=== PATIENT | female | born 2000 | race Caucasian/White ===

== ENCOUNTER 2024-08-15 15:53 | Emergency (ER) | payer BC, SELFPAY ==
[2024-08-15 16:02] VITALS: BP 137/101
[2024-08-15 16:21] LABS: % Basophils 0.8 % (0-2); % Eosinophils 0.5 % (0-6); % Immature Granulocytes 0.3 % (0-0.5); % Lymphocytes 32.5 % (20.5-51.1); % Monocytes 6.1 % (1.7-9.3); % Neutrophils 59.8 % (42.2-75.2); Absolute Basophils 0.1 10^3/uL (0-0.2); Absolute Monocytes 0.4 10^3/uL (0.1-0.6); Absolute Neutrophils 3.7 10^3/uL (1.4-6.5); Hematocrit 44.3 % (37.0-47.0); Hemoglobin 15.2 g/dL (12.0-16.0); Mean Corp Hgb Conc. 34.3 g/dL (33.0-37.0); Mean Corpuscular Hgb 30.3 pg (27.0-31.0); Mean Corpuscular Volume 88.4 fL (81.0-99.0); Mean Platelet Volume 9.8 fL (7.4-10.4); Nucleated Red Blood Cells % 0 %; Platelet Count 218 10^3/uL (130-400); Red Blood Cell Count 5.01 10^6/uL (4.20-5.40); Red Cell Dist. Width 12.6 % (11.5-14.5); White Blood Cell Count 6.1 10^3/uL (4.8-10.8)
[2024-08-15 16:31] LABS: HCG, Serum Qualitative Screen Negative
[2024-08-15 16:45] LABS: Troponin I < 0.012 ng/ml
[2024-08-15 16:48] LABS: ALT (SGPT) 18 U/L (0-35); AST (SGOT) 24 U/L (14-36); Albumin 4.8 g/dl (3.5-5.0); Alkaline Phosphatase 54 U/L (38-126); Blood Urea Nitrogen 20 mg/dl (7-17); Carbon Dioxide 23 mmol/L (22-30); Chloride 102 mmol/L (98-107); Glucose 94 mg/dl (70-99); Potassium 4.2 mmol/L (3.5-5.1); Sodium 137 mmol/L (135-145); Total Bilirubin 0.6 mg/dl (0.2-1.3); Total Protein 7.6 g/dl (6.3-8.2); eGFR > 60.00
--- NOTE | 2024-08-15 19:00 | ED.GENMED ---
History of Present Illness
<Raven Street PA-C - Last Filed: 08/15/24 21:16>
General
Chief Complaint: Chest Pain
Source: patient and family (mom at bedside)
Exam Limitations: none
Time Seen by Provider: 08/15/24 18:14
Nursing documentation reviewed up to this point in time: agreed with
History of Present Illness
History of Present Illness:
Patient is a 24-year-old female presenting for evaluation of chest pain. Patient states that around 10 AM she was sitting at her desk when she had a sudden onset pressure in her chest associated with palpitations. She also noticed brief episode of
sharp pain to her back earlier. Patient states chest pressure and palpitations have remained steady throughout the day. No true pleuritic component to pain. She does note some worsening while walking around. Patient states that her heart rate
was in the low 100s while at rest earlier. Patient had very mild associated shortness of breath. She also had transient paleness of her left hand. No lower leg swelling or pain. No fevers or chills.
Patient has been struggling with a dry cough over the past week as she is recently getting over a suspected viral illness a few weeks ago.
Of note�patient has been recently following with a form tamping machine operator for palpitations. She had a normal EKG and a Holter monitor that she just completed yesterday although has not received results. She did have a recent echo which showed only mild
mitral regurgitation
Review of Systems
<Raven Street PA-C - Last Filed: 08/15/24 21:16>
Review of Systems
Allergies reviewed?: Yes
All Other Systems: ROS reviewed and negative except as documented in HPI and ROS
Phy Exam
<Raven Street PA-C - Last Filed: 08/15/24 21:16>
Physical Exam
Physical Exam:
Vitals: Hypertensive, otherwise vital signs stable. Afebrile
General: Patient is well appearing, no acute distress. Nontoxic appearing
Skin: Warm and dry, no rashes or lesions
Head: Normocephalic, atraumatic
Eyes: Sclera nonicteric. EOMs intact. No nystagmus.
Throat: Protecting airway
Neck: Normal ROM, no cervical spine tenderness, no meningismus
Cardiac: Regular rate and rhythm, no murmurs. No reproducible chest wall tenderness palpable and equal distal pulses.
Pulm: O2 saturation 99 on room air normal respiratory effort, no wheezes, rales, rhonchi heard on exam.
Abdomen: No abdominal tenderness.
Extremities: No evidence of cyanosis or edema
Neuro: AAOx3. Grossly intact.
Psychiatric: Normal affect.
Scores
<Raven Street PA-C - Last Filed: 08/15/24 21:16>
Heart Score for Chest Pain Patients
STEMI patient?: No
History: Slightly or Non-Suspicious
ECG: Normal
Age: </= 45 years
Risk Factors: No Risk Factors
Troponin: </= Normal Limit
Heart Score for Chest Pain Patients: 0
Heart Score Risk: 2.5% MACE over next 6 weeks
Course
<Raven Street PA-C - Last Filed: 08/15/24 21:16>
Orders/Labs/Results
Orders:
Orders
08/15/24 15:54
Electrocardiogram (*1) Urgent
Reason for Study: Chest Pain
EKG- Treatment ONCE
08/15/24 16:07
Test Result ONCE
08/15/24 16:12
Complete Blood Count/With Diff Urgent
Comprehensive Metabolic Panel Urgent
HCG, Serum Qualitative Screen Urgent
Comment: Notify provider if positive test present
Magnesium Urgent
Comment: ADDON
TSH Reflex To Free T4 Urgent
Comment: ADD ON
Troponin I Urgent
08/15/24 18:35
Ketorolac [Toradol] 15 mg IV NOW STA
08/15/24 18:36
Add On- LAB Urgent
Tests Added?: TSH w/ reflex to T4
08/15/24 19:07
D-Dimer Urgent
08/15/24 19:28
Add On- LAB Urgent
Tests Added?: magnesium
CR Chest - 2 Views Urgent
Comment:
Reason For Exam: sob
Abnormal Lab Results
08/15/24
16:12
BUN 20 H mg/dl
(17)
08/15/24 16:12
08/15/24 16:12
Vital Signs
Initial and Last Documented VS:
Initial Vital Signs
Temp Pulse Resp BP Pulse Ox
98.1 F 98 20 137/101 99
08/15/24 16:02 08/15/24 16:02 08/15/24 16:02 08/15/24 16:02 08/15/24 16:02
Last Documented Vital Signs
Temp Pulse Resp BP Pulse Ox
98.2 F 89 20 119/90 97
08/15/24 19:31 08/15/24 19:31 08/15/24 19:31 08/15/24 19:31 08/15/24 19:31
<Reji Foley MD - Last Filed: 08/15/24 19:39>
Orders/Labs/Results
Orders:
Orders
08/15/24 15:54
Electrocardiogram (*1) Urgent
Reason for Study: Chest Pain
EKG- Treatment ONCE
08/15/24 16:07
Test Result ONCE
08/15/24 16:12
Complete Blood Count/With Diff Urgent
Comprehensive Metabolic Panel Urgent
HCG, Serum Qualitative Screen Urgent
Comment: Notify provider if positive test present
Magnesium Urgent
Comment: ADDON
TSH Reflex To Free T4 Urgent
Comment: ADD ON
Troponin I Urgent
08/15/24 18:35
Ketorolac [Toradol] 15 mg IV NOW STA
08/15/24 18:36
Add On- LAB Urgent
Tests Added?: TSH w/ reflex to T4
08/15/24 19:07
D-Dimer Urgent
08/15/24 19:28
Add On- LAB Urgent
Tests Added?: magnesium
CR Chest - 2 Views Urgent
Comment:
Reason For Exam: sob
Abnormal Lab Results
08/15/24
16:12
BUN 20 H mg/dl
(7-17)
08/15/24 16:12
08/15/24 16:12
Vital Signs
Initial and Last Documented VS:
Initial Vital Signs
Temp Pulse Resp BP Pulse Ox
98.1 F 98 20 137/101 99
08/15/24 16:02 08/15/24 16:02 08/15/24 16:02 08/15/24 16:02 08/15/24 16:02
Last Documented Vital Signs
Temp Pulse Resp BP Pulse Ox
98.2 F 89 20 119/90 97
08/15/24 19:31 08/15/24 19:31 08/15/24 19:31 08/15/24 19:31 08/15/24 19:31
<Raven Street PA-C - Last Filed: 08/15/24 21:16>
MDM/Problems Addressed
Differential Diagnosis Includes:
Not limited to: Costochondritis, pleurisy, pericarditis, myocarditis, PE, cardiac arrhythmia, etc.
MDM/Problems Addressed:
24-year-old healthy female presenting with chest pain and palpitations. Patient initially hypertensive although improved by my assessment. Physical exam reassuring as above. Basic labs initiated in triage without any clinically significant
abnormalities. Troponin was undetectable and given it has been greater than 6 hours since onset of symptoms�feel this is sufficient to rule out acute UT. EKG shows normal sinus rhythm without any acute ischemic changes. Differential broad
although given recent viral illness possibly costochondritis versus pleurisy. Given OCP and associated back discomfort will screen with D-dimer to rule out PE. Will add on TSH. Will give IV Toradol. Patient does have form tamping machine operator and had recent
echocardiogram and Holter monitor.
Update: Fortunately D-dimer negative. Very low suspicion for PE. TSH normal. Chest x-ray obtained without any acute abnormalities. No evidence of pneumonia. Upon reassessment�patient did have some improvement in pain following Toradol. Workup
in emergency department unremarkable. Symptoms possibly related to costochondritis or pleurisy. No evidence of acute cardiac emergency. Remains very stable and well-appearing. Feel she is stable for discharge home with cardiology follow-up
outpatient. Return precautions discussed. Patient and patient's mom comfortable with plan. Patient seen with attending physician
Chronic conditions affecting care:
N/A
Acute Exacerbation and/or Progression of Chronic Illness:
N/A
<Raven Street PA-C - Last Filed: 08/15/24 21:16>
*Radiology
Radiology exam reviewed: preliminary read by ED provider (Chest x-ray reviewed by sd-no acute abnormalities or pneumonia)
*Pulse Oximetry
Patient hypoxic: no
*EKG
Interpreted by ED Provider?: Yes
EKG Intrepretation Date: 08/15/24
Interpretation: abnormal
Heart Rate: 92
Rate: normal
Rhythm: sinus
[place]: right axis deviation
Interval: normal interval
QRS Pattern: normal QRS
Ischemia: no ischemia
*Critical Care Note
Total Time (30-74mins, 75-104mins- exclusive of procedures): Not Applicable
ED Attending Note
<Raven Street PA-C - Last Filed: 08/15/24 21:16>
-
Portions of this chart may have been created with voice recognition software.� Occasional wrong word or��sound alike� substitutions may have occurred due to the inherent limitations of voice recognition software.
<Reji Foley MD - Last Filed: 08/15/24 19:39>
ED Attending Note
Patient seen and examined by attending physician: Yes
I performed the substantive portion of visit, reviewed & personally made and approve the management plan that is documented in note by myself or CARMEN.: Yes
ED Attending Note:
I have seen and evaluated the patient with a [id number] encounter. I have spoken to the [PA] and involved in the medical history, the physical exam, medical decision making.
Evaluation and management service: agree unless noted differently below.
Results interpretation: agree unless noted differently below.
24-year-old female presenting to the emergency department with chest pain. Patient states that she sees a form tamping machine operator to check for palpitations as well as chest pain. She was diagnosed with costochondritis. She also had an echo and Holter
monitor completed. The echo did show mild mitral regurgitation. She has not received the results of the Holter monitor. She states that today around 9:10 AM she was sitting when she has central chest pain that radiated to her back. She did have
associated shortness of breath. A few hours later her left hand transiently went pale. No weakness. No numbness tingling. She states that the pain is intermittent. It is not exertional. Is not positional. No family history of cardiac disease
or sudden cardiac .
GENERAL: in no acute distress
HEENT: normocephalic, extraocular movements intact, moist oral mucosa
NECK: normal inspection
RESPIRATORY: no respiratory distress, clear to auscultation bilaterally
CARDIOVASCULAR: regular rate and rhythm, 2+ radial pulses bilateral
EXTREMITIES: non-tender, no edema/swelling
NEUROLOGIC: awake and alert, moves all extremities, equal strength in upper extremities
SKIN: warm
24-year-old female presents to the emergency department with chest pain and palpitations. Vitals are unremarkable and exam is reassuring. Will check blood work including dimer EKG and obtain chest x-ray. EKG per my interpretation normal sinus
rhythm. Anticipate discharge
Discharge Plan
Departure
Patient Disposition: Home (Routine Discharge)
Date of Disposition: 08/15/24
Time of Disposition: 20:27
Patient with high blood pressure during this ER visit?: No
Condition: Good
Covid-19: Not Applicable
Discharge Problem:
Chest pain, Heart palpitations
Instructions: Palpitations ED, Chest pain
Prescriptions:
No Action
No Meds [No Current Medications]
0
Referrals:
SOLEDAD LUNA, [Family Provider] -
Activity Restrictions/Additional Instructions:
Return to the emergency department any chest pain, shortness of breath/difficulty breathing, severe back pain, persistent lightheadedness/dizziness, worsening in current symptoms, or any other concerns
-Your lab work and chest x-ray showed no acute abnormalities.
-As discussed�it is important to stay well-hydrated. You can take Motrin/Tylenol as needed for any discomfort.
-Follow-up with your form tamping machine operator for further evaluation/management
Monitor your symptoms closely return to the emergency department with any acute worsening/new symptoms or any other concern
Interventions
Interventions:
*Risk Screen - Suicide Last Done: 08/15/24 16:02
*General Assessment Last Done: 08/15/24 16:02
*Neglect/Abuse Screening Last Done: 08/15/24 16:02
*ED COVID-19 Vaccine History Last Done: 08/15/24 20:53
*Nursing Disposition Last Done: 08/15/24 20:53
ED- Cardiac Assessment Last Done: 08/15/24 20:53
Discharge Date and Time
Discharge Date/Time: 08/15/24 20:54
Print Language: [email or web address]
[2024-08-15] MEDS: TORADOL 15 MG IV (19:05)
[2024-08-15 19:28] LABS: D-Dimer 0.38 ug/mlFEU (0.00-0.50)
[2024-08-15 19:31] VITALS: BP 119/90
[2024-08-15 19:41] LABS: TSH Reflex To Free T4 1.29 uIU/ml (0.47-4.68)
== END 2024-08-15 20:54 | disposition home or self-care (01) ==
LOC: EMR 15:53
PROVIDERS: Emergency Medicine; Physician Assistant; EMERGENCY PHYSICIAN Student in an Organized Health Care Education/Training Program; FAMILY PHYSICIAN Student in an Organized Health Care Education/Training Program
DX: R07.89 Other chest pain (principal); R00.2 Palpitations
CPT/HCPCS: 99283; 96374; 71046; 80053; 83735; 84443; 84484; 84703; 85025; 85379; 93005